=== PATIENT | female | born 1965 ===

== ENCOUNTER 2024-10-02 14:15 | Outpatient (AMB) | payer OTHER, SELFPAY ==
--- NOTE | 2024-10-02 14:34 | A.OFFPC_ITS ---
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 Transferring from Dr Frost from [facility]. Hypothyroid: On levothyroxine 100mcg daily. Due for TSH Mammo: History of reconstructive surgery, last one during COVID with Dr Loaiza Colonoscopy: Double endoscopy at ~ age 50 with [facility]. Referral placed today ROS CONSTITUTIONAL: Denies weight loss, fever and chills. HEENT: Denies changes in vision and hearing. RESPIRATORY: Denies SOB and cough. CV: Denies palpitations and CP GI: Denies abdominal pain, nausea, vomiting and diarrhea. : Denies dysuria and urinary frequency. MSK: Denies new myalgia and joint pain. SKIN: Denies rash and pruritus. NEUROLOGICAL: Denies headache PSYCHIATRIC: Denies recent changes in mood. PHYSICAL EXAM: GENERAL: Alert and oriented x 3. NAD EYES: EOMI. Anicteric. HENT: Moist mucous membranes. No scleral icterus. No cervical lymphadenopathy. LUNGS: Clear to auscultation bilaterally. CARDIOVASCULAR: Regular rate and rhythm. No murmur. No JVD. ABDOMEN: Soft, non-tender +bs EXTREMITIES: No edema. Non-tender. SKIN: No rashes or lesions. Warm. NEUROLOGIC: No focal neurological deficits. CN II-XII grossly intact PSYCHIATRIC: Cooperative. 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 1. Little interest or pleasure in doing things: not at all 2. Feeling down, depressed, or hopeless: not at all 3. Trouble falling or staying asleep, or sleeping too much: not at all 4. Feeling tired or having little energy: not at all 5. Poor appetite or overeating: not at all 6. Feeling bad about yourself - or that you are a failure or have let yourself or your family down: not at all 7. Trouble concentrating on things, such as reading the newspaper or watching television: not at all 8. Moving or speaking so slowly that other people could have noticed. Or the opposite - being so fidgety or restless that you have been moving around a lot more than usual: not at all 9. Thoughts that you would be better off or of hurting yourself in some way: not at all Total score: 0 Depression Screening Interpretation: Negative Depression Screening Done: Yes 53186 - PHQ-9 Billing: Yes Source: Developed by Drs. Kar Simmons, Kirstie Mckee, Yamil Womack and colleagues, with an educational don from [employer]. Thrive Questionnaire Date Thrive assessed: 10/02/24 I am a: Patient Within the past 12 months, did the food you bought not last and you didn't have the money to get more?: Never true Within the past 12 months, did you worry whether your food would run out before you got money to buy more?: Never true Do you have trouble paying for medicines?: No Do you have trouble getting transportation to medical appointments?: No Do you have trouble paying your heating and electricity bill?: No Do you have trouble taking care of your child, family member or friend?: No Do you have trouble with day-to-day activities such as bathing, preparing meals, shopping, managing finances, etc.?: No Are you currently unemployed and looking for a job?: No Are you interested in more education?: No Please select the resources that you would like help with: None Currently or been in a relationship where the following occur: No concerns reported THRIVE Score: 0 AUDIT C Alcohol Use Questionnaire (AUDIT-C) 1. How often do you have a drink containing alcohol?: Never 3. How often do you have six or more drinks on one occasion?: Never Total Score: 0 MOISE-7 AMB Questionnaire MOISE-7 Date MOISE - 7 assessed: 10/02/24 Feeling nervous, anxious, or on edge: 0 = Not at all Not being able to stop or control worryin = Not at all Worrying too much about different things: 0 = Not at all Trouble relaxin = Not at all Being so restless that it is hard to sit still: 0 = Not at all Becoming easily annoyed or irritable: 0 = Not at all Feeling afraid as if something awful might happen: 0 = Not at all Total MOISE-7 score (0-4 normal; 5-9 mild; 10-14 moderate; 15-21 severe): 0 Source: Developed by Drs. Kar Smimons, Kirstie Mckee, Yamil Womack and colleagues, with an educational dno from [employer]. MOISE-7 Assessment Billing MOISE-7 Assessment Tool: MOISE-7 Assessment 07451 Physical exam (Primary Care) Vital Signs: Last Vital Signs Temp 98 F 10/02/24 14:44 Pulse 75 10/02/24 14:44 Resp 12 10/02/24 14:44 BP 112/78 10/02/24 14:44 Pulse Ox 100 10/02/24 14:44 Oxygen Delivery Method Room Air 10/02/24 14:44 BMI result Body Mass Index 48.5 Tobacco/Smoking Status: Tobacco use Status Tobacco use date assessed 10/02/24 10/02/24 14:34 Patient Tobacco Use Status Never used Tobacco 10/02/24 14:53 e-Cigarette/Vaping Use Never Used 10/02/24 14:53 PHQ-9: PHQ-9 Score PHQ-9: Total score 0 10/02/24 14:54 Depression Screening Interpretation: Negative Thrive Assessment: Date of Thrive Assessment Date Thrive assessed 10/02/24 10/02/24 14:54 Currently or been in a relationship where the following occur: No concerns reported Coding Level of Care Code New Pt Level 4 (72909) Complex EM visit Add On G2211 Diagnoses Encounter to establish care Z76.89 Hormone imbalance E34.9 Hypothyroidism, unspecified type E03.9 Hypothyroidism type: unspecified Additional Codes MOISE-7 Assessment Billing - MOISE-7 Assessment Tool: MOISE-7 Assessment 35937 ([id number]) PHQ-9 - 00834 - PHQ-9 Billing: Yes ([id number]) Assessment & Plan Assessment & Plan (1) Encounter to establish care: Code(s): Z76.89 - Persons encountering health services in other specified circumstances Category: Medical (2) Hormone imbalance: Code(s): E34.9 - Endocrine disorder, unspecified Category: Medical (3) Hypothyroid: Code(s): E03.9 - Hypothyroidism, unspecified Category: Medical Qualifiers: Hypothyroidism type: unspecified Qualified Code(s): E03.9 - Hypothyroidism, unspecified Plan 59 year old female presenting to establish care Has requested records Past medical reviewed. medications reconciled Due, or soon due for colonoscopy Referral placed. Labs ordered Orders: Orders TSH reflex Free T4 Today E03.9 - Hypothyroidism, unspecified, Z13.220 - Encounter for screening for lipoid disorders, Z13.228 - Encounter for screening for other metabolic disorders Lipid Panel Today E03.9 - Hypothyroidism, unspecified, Z13.220 - Encounter for screening for lipoid disorders, Z13.228 - Encounter for screening for other metabolic disorders Complete Blood Count Auto Diff Today E03.9 - Hypothyroidism, unspecified, Z13.220 - Encounter for screening for lipoid disorders, Z13.228 - Encounter for screening for other metabolic disorders Comprehensive Met. Panel Today E03.9 - Hypothyroidism, unspecified, Z13.220 - Encounter for screening for lipoid disorders, Z13.228 - Encounter for screening for other metabolic disorders Cortisol Random Today E34.9 - Endocrine disorder, unspecified Lyme IgG/IgM w/reflex to WB Today E34.9 - Endocrine disorder, unspecified Referrals Gastroenterology Referral E03.9 - Hypothyroidism, unspecified, Z12.11 - Encounter for screening for malignant neoplasm of colon, Z13.220 - Encounter for screening for lipoid disorders, Z13.228 - Encounter for screening for other metabolic disorders, Z76.89 - Persons encountering health services in other specified circumstances Medications: New levothyroxine (Synthroid) 100 mcg PO DAILY 90 tabs 3RF
[2024-10-02 14:44] VITALS: BP 112/78; PULSE 75; RESP 12; TEMP 36.6; O2SAT 100; BMI 48.5
--- OUTSIDE RECORDS SUMMARY | 2024-10-02 17:30 | XMS_ITS | Encounter Summary ---
Author Organization [employer] Address [address] [place] [address] [address] [place] [address] Care Team Providers Care Dope Edger Name Role Phone Lexi Pereira Primary Care Provider [phone] Reason for Visit * Reason Comments Med Refill Encounter Details Date Type Department Care Team (Late st Contact Info) Description 06/07/2022 Refill [facility] MED[facility] [address] [place] [address] Kay Shrestha MD [address] [place] [address] Hypothyroidism (acquired) (Primary Dx) Social History Tobacco Use Types Packs/Day Years Used Date Smoking Tobacco: Never Assessed Comments Unknown Sex and Gender Information Value Date Recorded Sex Assigned at Female 06/16/2023 9:27 AM EST Legal Sex Female 8:32 PM EDT Gender Identity Female 06/16/2023 9:27 AM EST Sexual Orientation Choose not to disclose 2022 9:27 AM EST documented as of this encounter Plan of Treatment Not on file documented as of this encounter Visit Diagnoses Diagnosis Hypothyroidism (acquired)- Primary Unspecified hypothyroidism documented in this encounter Care Teams Dope Edger Relationship Specialty Start Date End Date Lexi Pereira DO [address] [place] [address] PCP - General Family Medicine 06/07/23 documented as of this encounter
--- OUTSIDE RECORDS SUMMARY | 2024-10-02 17:30 | XMS_ITS | Clinical Summary ---
Author Organization [employer] Address [address] [place] [address] [address] [place] [address] Care Team Providers Care Hearing Stenographer Name Role Phone Lexi Pereira DO Primary Care Provider Allergies Active Allergy Reactions Criticality Noted Date Comments Azithromycin Diarrhea 06/21/2023 Penicillins 06/21/2023 Other reaction(s): severe diarrhea Medications levothyroxine (Unithroid) 100 MCG tabletIndication s:Hypothyroidism (acquired) Take 1 tablet (100 mcg) by mouth in the morning. Take on an empty stomach. 90 tablet 3 08/17/2024 Active Active Problems Problem Noted Date Diagnosed Date Vitamin D deficiency 07/13/2023 Popliteal pain 07/06/2023 Assessment & Plan (07/06/2023 11:52 AM EST): Suspect Nolan's cyst. 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 Check thyroid studies. Medial epicondylitis of right elbow 06/21/2023 06/21/2023 Sarcoid 06/21/2023 06/21/2023 Assessment & Plan (06/21/2023 10:23 AM EST): Hilar adenopathy, diagnosed 2006 with no subsequent follow up. Dyspnea on exertion. CXR ordered Seasonal allergic rhinitis due to pollen 024 06/21/2023 Varicose veins of lower extr emities without ulcer or inflammation 06/21/2023 06/21/2023 Graves' disease in remission 06/21/2023 Overview (06/21/2023): S/p radioactive iodine ablation in 1997 Assessment & Plan (06/21/2023 10:20 AM EST): Symptoms may reflect inadequate thyroid hormone replacement. Check thyroid studies. Symptoms may also be d/t ongoing or new autoimmune disease. Screen MATTHIEU. H/O bilateral breast implants 06/21/2023 Overview (06/21/2023): Breast reconstruction s/p cancer. Most recent implants from 2020 History of breast cancer 06/20/20062006 Overview (06/21/2023): Left breast cancer s/p bilateral mastectomy in 2006. S/p reconstruction. Resolved Problems Problem Noted Date Diagnosed Date Resolved Date Breast cancer 06/20/2006200606/21/2023 Encounters Date Type Department Care Team Description 08/17/2024 Andrew Walker [facility] [address] [place] [id number] Lexi Pereira DO Hypothyroidism (acquired) (Primary Dx) from Last 3 Months Immunizations Name Administration Dates Next Due Pneumococcal Polysaccharide PPSV23 03/04/2015 Tdap 03/04/2015 Social History Tobacco Use Types Packs/Day Years Used Date Smoking Tobacco: Never Smokeless Tobacco: Never Tobacco Cessation:Counseling Given: Not Answered Alcohol Use Standard Drinks/Week Comments Never 0 (1 standard drink = 0.6 oz pur e alcohol) Comments Unknown Sex and Gender Information Value Date Recorded Sex Assigned at Female 06/16/2023 9:27 AM EST Legal Sex Female 8:32 PM EDT Gender Identity Female 06/16/2023 9:27 AM EST Sexual Orientation Choose not to disclose 2022 9:27 AM EST Last Filed Vital Signs Vital Sign Reading Time Taken Comments Blood Pressure 112/68 06/21/2023 8:43 AM EST Pulse 92 06/21/2023 8:43 AM EST Temperature - - Respiratory Rate 16 06/21/2023 8:43 AM EST Oxygen Saturation 100% 03/02/2022 8:30 AM EDT Inhaled Oxygen Concentration - - Weight 73 kg (161 lb) 06/21/2023 8:43 AM EST Height 168.9 cm (5' 6.5 ) 06/21/2023 8:43 AM EST Body Mass Index 25.6 06/21/2023 8:43 AM EST Plan of Treatment Health Maintenance Due Date Last Done Comments CT Colonography 1965 Colonoscopy 1965 Colorectal Cancer Screening 1965 Depression Screening 1965 FIT DNA/Cologuard 1965 FIT 1965 FOBT 1965 HIV Screening 1965 SDOH Screening 1965 Sigmoidoscopy 1965 Alcohol/Substance Use Screening 1977 Hepatitis C Screening 1983 Hepatitis B Vaccines (1 of 3 - 19+ 3-dose series) 1984 HPV/Cotest 1995 Zoster Vaccines (1 of 2) 2015 Pneumococcal Vaccine: 50+ Ye ars (2 of 2 - PCV) 03/04/2016 03/04/2015 Cervical Cancer Screening 01/30/2022 Pap Smear 01/30/2022 01/30/2019 COVID-19 Vaccine (1 - 2023-2 5 season) 2024 Influenza Vaccine (#1) 2024 Tobacco Screening 06/21/2024 06/21/2023 DTaP/Tdap/Td Vaccines (2 - T d or Tdap) 03/04/2025 03/04/2015 RSV Patients and Pa tients Aged 60 years or older (1 - 1-dose 75+ series) 2040 HIB Vaccines Aged Out No longer eligi ble based on patient's age to complete this topic HPV Vaccines Aged Out No longer eligi ble based on patient's age to complete this topic Hepatitis A Vaccines Aged Out No long er eligible based on patient's age to complete this topic IPV Vaccines Aged Out No longer eligi ble based on patient's age to complete this topic Meningococcal Vaccine Aged Out No michael nikki eligible based on patient's age to complete this topic RSV under 20 months Aged Out No longe r eligible based on patient's age to complete this topic Rotavirus Vaccines Aged Out No longer eligible based on patient's age to complete this topic Procedures Procedure Name Priority Date/Time Associated Diagnosis Comments HM PAP/HPV Routine 01/30/2019 from Last 3 Months or Most Recently Relevant to Health Maintenance Results * Hm Pap Smear (01/30/2019) us Historical Provider HEALTH MAINTENANCE Final Result from Last 3 Months or Most Recently Relevant to Health Maintenance Insurance [facility] , [address] [place] [address] Care Teams Hearing Stenographer Relationship Specialty Start Date End Date Lexi Pereira DO [address] [place] [id number] PCP - General Family Medicine 06/07/23
== END 2024-10-02 15:19 | disposition home or self-care (01) ==
LOC: HO.HMCFM 14:15
PROVIDERS: PCP Internal Medicine; Visit Provider Internal Medicine
DX: Z76.89 Persons encountering health services in other specified circumstances (principal); E34.9 Endocrine disorder, unspecified; E03.9 Hypothyroidism, unspecified

== ENCOUNTER → 2024-10-02 14:15 | Outpatient (BNVA) | payer OTHER, SELFPAY | PROVIDERS: PCP Internal Medicine; Visit Provider Internal Medicine | DX: E03.9 Hypothyroidism, unspecified (principal); E34.9 Endocrine disorder, unspecified; Z76.89 Persons encountering health services in other specified circumstances | CPT/HCPCS: 96127 ==

== ENCOUNTER 2024-10-16 11:05 | Outpatient (REF) | payer OTHER, SELFPAY ==
--- OUTSIDE RECORDS SUMMARY | 2024-10-16 12:58 | XMS_ITS | Clinical Summary ---
Author Organization [employer] Address [address] [place] [address] [address] [place] [address] Care Team Providers Care Mobile Sales Assistant Name Role Phone Lexi Pereira DO Primary Care Provider [phone] Allergies Active Allergy Reactions Criticality Noted Date [...] Department Care Team Description 08/17/2024 Andrew Walker [facility] [address] [place] [phone] Lexi Pereira DO Hypothyroidism (acquired) (Primary Dx) [...] Most Recently Relevant to Health Maintenance Insurance [facility] , [address] [place] [address] Care Teams Mobile Sales Assistant Relationship Specialty Start Date End Date Lexi Pereira DO [address] [place] [id number] PCP - General Family Medicine 06/07/23
--- OUTSIDE RECORDS SUMMARY | 2024-10-16 12:58 | XMS_ITS | Encounter Summary ---
Author Organization [employer] Address [address] [place] [address] [address] [place] [address] Care Team Providers Care Machine Operator Assistant Name Role Phone Lexi Pereira Primary Care Provider [phone] Reason for Visit * Reason Comments Med Refill Encounter Details Date Type Department Care Team (Late st Contact Info) Description 06/07/2022 Refill [facility] MED[facility] [address] [place] [address] Kay Shrestha MD [address] [place] [address] Hypothyroidism (acquired) (Primary Dx) Social History Tobacco [...] hypothyroidism documented in this encounter Care Teams Machine Operator Assistant Relationship Specialty Start Date End Date Lexi Pereira DO [address] [place] [address] PCP - General Family Medicine 06/07/23 documented as of this encounter
[2024-10-16 14:21] LABS: MANUAL DIFF FLAG NO
[2024-10-16 14:25] LABS: Basophils Percent Auto 1.2 % (0-2); Eosinophils Absolute Auto 0.3 X10*3/uL (0.0-0.4); Eosinophils Percent Auto 9.5 % (0-4); Hematocrit 37.3 % (37.0-47.0); Hemoglobin 11.6 g/dl (12.0-16.0); Lymphocytes Absolute Auto 1.1 X10*3/uL (1.2-4.9); Lymphocytes Percent Auto 33.7 % (20-40); Mean Corpuscular HGB Conc 31.1 g/dl (31.0-35.0); Mean Corpuscular Hemoglobin 25.4 pg (27.0-33.0); Mean Corpuscular Volume 81.8 fL (80.0-98.0); Mean Platelet Volume 9.2 fL (9.4-12.3); Monocytes Absolute Auto 0.4 X10*3/uL (0.1-1.2); Neutrophils Absolute Auto 1.4 x10*3/uL (2.0-8.3); Neutrophils Percent Auto 42.6 % (45-73); Platelet Count 265 X10*3/uL (160-400); Red Blood Count 4.56 X10*6/uL (4.20-5.50); Red Cell Distribution Width 17.8 % (11.0-16.0); White Blood Count 3.4 X10*3/uL (4.8-10.8)
[2024-10-16 14:52] LABS: Alanine Aminotransferase 19 U/L (0-31); Alkaline Phosphatase 101 U/L (39-117); Anion Gap 10 (12-20); Aspartate Amino Transferase 33 U/L (5-31); Bilirubin Total 0.7 mg/dL (0.0-1.0); Blood Urea Nitrogen 12 mg/dL (9-16); Calcium 9.4 mg/dL (8.4-10.2); Carbon Dioxide 27 mmol/L (22-29); Chloride 108 mmol/L (96-108); Cholesterol 130 mg/dL (<200); Estimated Glomerular Filt Rate > 60; Glucose Random 86 mg/dL (60-115); HDL Cholesterol 48 mg/dL (>40); LDL Cholesterol Calculated 72 mg/dL (<100); Potassium 4.5 mmol/L (3.3-5.1); Sodium 140 mmol/L (135-145); Total Protein 7.4 g/dL (6.5-8.0); Triglycerides 53 mg/dL (<150)
[2024-10-16 15:10] LABS: Cortisol Random 8.3 ug/dL
[2024-10-17 19:14] LABS: Lyme Abs Screen <0.90 index
== END 2024-10-16 11:06 | disposition home or self-care (01) ==
LOC: HO.WFDLDS 11:05
PROVIDERS: Visit Provider Internal Medicine
DX: E34.9 Endocrine disorder, unspecified (principal); E03.9 Hypothyroidism, unspecified; Z13.228 Encounter for screening for other metabolic disorders; Z13.220 Encounter for screening for lipoid disorders
CPT/HCPCS: 36415; 80053; 80061; 82533; 84443; 85025; 86617; 86618

== ENCOUNTER 2024-11-30 12:14 | Outpatient (AMB) | payer OTHER, SELFPAY ==
[2024-11-30 12:53] VITALS: BP 98/60; PULSE 92; TEMP 37.1; O2SAT 97; BMI 24.7
--- NOTE | 2024-11-30 12:53 | AM.OFFWIN_ITS ---
Intake Vital Signs 11/30/24 12:53 Height 5 ft 6.5 in Weight 155 lb 2 oz BMI 24.7 BP 98/60 Blood Pressure Location Lt brachial Position Sitting Pulse 92 Pulse Source Pulse Oximeter Temp 98.8 F Temp Source Oral Pulse Oximetry (%) 97 Oxygen Delivery Method Room Air Intake Visit Reasons: EP-cough, body ache, sore throat Intake Note: Pt presents to the office today for c/o cough,body aches, chest congestion, and sore throat x5 days. Patient Tobacco Use Status: Never used Tobacco Allergies amoxicillin Allergy (Severe, Verified 11/30/24 12:56) Rash HPI HPI Comments History of Present Illness Details History - The patient is a 59-year-old female pr esenting with a cough producing greenish-lackey sputum and shortness of breath. - The cough began approximately five day s ago and was initially thought to be due to allergies. - The patient denies any history of COPD or asthma but has had bronchitis and pneumonia in the past. - She does not smoke or vape. - The patient reports experiencing chill s but no fever. - She has not experienced sinus pain, ea r pain, or headaches recently, although she did initially suspect sinus involvement. - The patient has not used an inhaler be fore and has tried ragj-gti-drrwqzh medications without significant relief. Physical Exam General: Cooperative, healthy appearing, comfortable and no acute distress Orientation/consciousness: Patient oriented x3 Limitations: No limitations Head: Normal to inspection Ears: Hearing grossly normal bilaterally, external ears normal, fluid present bilat TMs, no infection noted Nose: Normal external nose present, Normal nares present and No nasal discharge present Face and sinus: Normal facial exam and Yes sinuses nontender Mouth: Normal oral and palatal mucosa present and moist mucous membranes Throat: Yes tonsils normal, Yes uvula midline. Posterior oropharynx erythema, no exudates Eyes: Appearance normal, both eyes and all related structures Neck: Normal visual inspection, full ROM Respiratory: Clear to auscultation bilaterally. Normal respiratory effort, able to speak in complete sentences, not actively coughing, no respiratory distress, not tachypneic, no tripod positioning and no use of accessory muscles Cardiovascular: Regular rate and rhythm. 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 [employer] Current occupational exposures/hazards: Yes (cleaning chemicals) Cognitive needs: No Hearing needs: No Vision needs: Yes (glasses) Review of Systems Const All systems reviewed & are unremarkable except as noted in HPI and below Physical Exam Vital Signs: Last Vital Signs Temp 98.8 F 11/30/24 12:53 Pulse 92 11/30/24 12:53 BP 98/60 11/30/24 12:53 Pulse Ox 97 11/30/24 12:53 Oxygen Delivery Method Room Air 11/30/24 12:53 BMI result Body Mass Index 24.7 Results AMB Rapid Strep AMB Rapid Strep Negative Last Edit by Ivelisse Chacon CMA on 11/30/24 13:06 Assessment & Plan Assessment & Plan (1) URI, acute: Code(s): J06.9 - Acute upper respiratory infection, unspecified Plan: VSS, pt well appearing and PE unremarkable. - Perform viral testing for influenza, COVID-19, and RSV to determine the cause of the infection. - Prescribe Fluticasone nasal spray to reduce fluid in the ears and alleviate congestion. - Prescribe an inhaler to manage shortness of breath and potential bronchospasm. - Recommend uprx-nto-tkqeuug decongestants and antihistamines to manage symptoms. - Advise the patient to rest and avoid work until symptoms improve to prevent spreading the infection. - Provide a note for work absence and advise follow-up if symptoms persist beyond a week. Patient was informed and verbally consented to the use of an ambient scribe for clinic note documentation during this visit Orders: Orders AMB Rapid Strep Screen Today Z13.9 - Encounter for screening, unspecified SARS-CoV2/FLU/RSV Today R09.89 - Other specified symptoms and signs involving the circulatory and respiratory systems Medications: New albuterol sulfate 90 mcg/actuation 2 puffs inhalation Q6H PRN 8.5 grams 0RF shortness of breath or wheezing or cough Coding Level of Care Code Est Pt Level 3 (64140) Diagnoses URI, acute J06.9
--- OUTSIDE RECORDS SUMMARY | 2024-11-30 12:56 | XMS_ITS | Clinical Summary ---
Author Organization [facility] 299 [facility] Address [address] [place] [address] Phone Care Team Providers Care Seo Consultant Name Role Phone Tia Philippe MD Primary Care Provider Allergies Active Allergy Reactions Criticality Noted Date Comments Amoxicillin 10/10/2024 Medications levothyroxine (SYNTHROID, LEVOTHROID) 100 mcg tablet Take by mouth 1 (one) time each day before breakfast. Active sodium,potassiu m,mag sulfates (Suprep Bowel Prep Kit) 17.5-3.13-1.6 gram recon soln bowel prep kit oral solution Take 177ML by mouth for 2 doses. SEE INSTRUCTIONS PROVIDED BY OFFICE. 1 kit Active Social History Tobacco Use Types Packs/Day Years Used Date Smoking Tobacco: Never Assessed Comments Unknown Sex and Gender Information Value Date Recorded Sex Assigned at Not on file Legal Sex Female 4:09 PM EDT Gender Identity Not on file Sexual Orientation Not on file Plan of Treatment Upcoming Encounters Date Type Department Care Team (Late st Contact Info) Description 12/10/2024 8:30 AM EDT Appointment [facility] Endoscopy [address] [place] [phone] Cl Forbes MD [address] [address] Health Maintenance Due Date Last Done Comments Breast Cancer Screening 1965 DTaP,Tdap,and Td Vaccines (1 - Tdap) 1984 Hepatitis B Vaccines (1 of 3 - 19+ 3-dose series) 1984 Cervical Cancer Screening: P ap Smear 1986 Pneumococcal Vaccine: 50+ Ye ars (1 of 1 - PCV) 2015 Zoster Vaccines (1 of 2) 2015 COVID-19 Vaccine (1 - 2023-2 5 season) 2024 Colorectal Cancer Screening: Colonoscopy 10/10/2024 Depression Screening 10/10/2024 HIV Screening 10/10/2024 Hepatitis C Screening 10/10/2024 Social Influencers of Health Screening 10/10/2024 Influenza Vaccine (Season Ended) 2025 RSV Immunization Adult Patie nts (1 - 1-dose 75+ series) 2040 HIB [...] on patient's age to complete this topic MMR Vaccines Aged Out No longer eligi ble based on patient's age to complete this topic Meningococcal ACWY Vaccine Aged Out N o longer eligible based on patient's age to complete this topic Meningococcal B Vaccine Aged Out No l onger eligible based on patient's age to complete this topic Pneumococcal Vaccine: Pediat rics (0 to 5 Years) and At-Risk Patients (6 to 64 Years) Aged Out No longer eligible b ased on patient's age to complete this topic RSV Immunization Patients Un jose 20 months Aged Out No longer eligible b ased on patient's age to complete this topic Varicella Vaccines Aged Out No longer eligible based on patient's age to complete this topic Insurance [facility] [address] [place] [address] Care Teams Seo Consultant Relationship Specialty Start Date End Date Tia Philippe MD [address] [place] [address] [address] [place], [place] [phone] PCP - General Internal Medicine 10/09/24
== END 2024-11-30 13:17 | disposition home or self-care (01) ==
PROVIDERS: PCP Internal Medicine; Visit Provider Physician Assistant
DX: Z13.9 Encounter for screening, unspecified (principal); J06.9 Acute upper respiratory infection, unspecified

== ENCOUNTER 2024-11-30 12:14 | Outpatient (REF) | payer OTHER, SELFPAY ==
[2024-11-30 17:57] LABS: Influenza A PCR NEGATIVE (Negative); Influenza B PCR NEGATIVE (Negative); Resp Syncy Virus RNA Qual PCR NEGATIVE (Negative); SARS COV2 PCR INHOUSE NEGATIVE (Negative)
== END 2024-11-30 12:15 | disposition home or self-care (01) ==
LOC: HO.LNP 12:14
PROVIDERS: PCP Internal Medicine; Visit Provider Physician Assistant
DX: J06.9 Acute upper respiratory infection, unspecified (principal); R09.89 Other specified symptoms and signs involving the circulatory and respiratory systems
CPT/HCPCS: 0241U; 87880

== ENCOUNTER 2024-12-31 10:55 | Outpatient (AMB) | payer SELFPAY ==
--- NOTE | 2024-12-31 11:05 | MHC.PC.OV ---
Vital Signs 12/31/24 11:06 Height 5 ft 6.14 in Weight 156 lb BMI 25.1 BP 102/66 Blood Pressure Location Rt brachial Position Sitting Respiration 12 Pulse 82 Pulse Source Pulse Oximeter Temp 98.4 F Temp Source Oral Pulse Oximetry (%) 98 Oxygen Delivery Method Room Air Intake Visit Reasons: FMLA paper from [employer] Intake Note: FMLA paperwork Special Education Curriculum Specialist Required: No Allergies amoxicillin Allergy (Severe, Verified 12/31/24 11:06) Rash Tobacco use date assessed: 10/02/24 Dental Screening Dental Screen Date: 10/02/24 HPI HPI Comments History of Present Illness Details 59 year old female with a past medical history of hypothyroid presenting for follow up Recent URI. Given an inhaler. Missed a few days of work. Needs FMLA papers for missed work. She continue to have some residual cough. It is more prevalent at night. No fevers, sweats. Hypothyroid: On levothyroxine 100mcg daily. Mammo: History of reconstructive surgery, last one during COVID with Dr Loaiza Colonoscopy: Double endoscopy at ~ age 50 with [facility]. Referral placed today ROS CONSTITUTIONAL: Denies weight loss, fever and chills. HEENT: Denies changes in vision and hearing. RESPIRATORY: Denies SOB and cough. CV: Denies palpitations and CP GI: Denies abdominal pain, nausea, vomiting and diarrhea. : Denies dysuria and urinary frequency. MSK: Denies new myalgia and joint pain. SKIN: Denies rash and pruritus. NEUROLOGICAL: Denies headache PSYCHIATRIC: Denies recent changes in mood. PHYSICAL EXAM: GENERAL: Alert and oriented x 3. NAD EYES: EOMI. Anicteric. HENT: Moist mucous membranes. No scleral icterus. No cervical lymphadenopathy. LUNGS: Clear to auscultation bilaterally. CARDIOVASCULAR: Regular rate and rhythm. No murmur. No JVD. ABDOMEN: Soft, non-tender +bs EXTREMITIES: No edema. Non-tender. SKIN: No rashes or lesions. Warm. NEUROLOGIC: No focal neurological deficits. CN II-XII grossly intact PSYCHIATRIC: Cooperative. 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 Kar Simmons, Kirstie Mckee, Yamil Womack and colleagues, with an educational don from [employer]. Physical exam (Primary Care) Vital Signs: Last Vital Signs Temp 98.4 F 12/31/24 11:06 Pulse 82 12/31/24 11:06 Resp 12 12/31/24 11:06 BP 102/66 12/31/24 11:06 Pulse Ox 98 12/31/24 11:06 Oxygen Delivery Method Room Air 12/31/24 11:06 BMI result Body Mass Index 25.1 Tobacco/Smoking Status: Tobacco use Status Tobacco use date assessed 10/02/24 12/31/24 11:06 Patient Tobacco Use Status Never used Tobacco 12/31/24 11:06 e-Cigarette/Vaping Use Never Used 12/31/24 11:06 Thrive Assessment: Date of Thrive Assessment Date Thrive assessed 10/02/24 12/31/24 11:06 Coding Level of Care Code Est Pt Level 4 (08676) Diagnoses Hypothyroidism, unspecified type E03.9 Hypothyroidism type: unspecified Subacute cough R05.2 Cough type: subacute Assessment & Plan Assessment & Plan (1) Hypothyroid: Code(s): E03.9 - Hypothyroidism, unspecified Category: Medical Qualifiers: Hypothyroidism type: unspecified Qualified Code(s): E03.9 - Hypothyroidism, unspecified (2) Cough: Code(s): R05.9 - Cough, unspecified Qualifiers: Cough type: subacute Qualified Code(s): R05.2 - Subacute cough Plan 59 year old female for follow up cough Lung exam is benign. [facility] Orders: Orders XR chest 2V Today R05.9 - Cough, unspecified UA CC w/rflx Micro + Cult Today I63.9 - Cerebral infarction, unspecified Medications: New azithromycin For 250 mg dose pack: take 500 mg today (day 1), then 250 mg for 4 days (days 2-5) PO 6 tabs 0RF
[2024-12-31 11:06] VITALS: BP 102/66; PULSE 82; RESP 12; TEMP 36.9; O2SAT 98; BMI 25.1
--- OUTSIDE RECORDS SUMMARY | 2024-12-31 11:54 | XMS_ITS | Clinical Summary ---
Author Organization [facility] 299 [facility] Address [address] [place] [address] Phone Care Team Providers Care Oliver Filter Operator Name Role Phone Tia Philippe MD Primary Care Provider [phone] Allergies Active Allergy Reactions Criticality Noted Date Comments Amoxicillin 10/10/2024 Medications levothyroxine (SYNTHROID, LEVOTHROID) 100 mcg tablet Take by mouth 1 (one) time each day before breakfast. Active sodium,potassiu m,mag sulfates (Suprep Bowel Prep Kit) 17.5-3.13-1.6 gram recon soln bowel prep kit oral solution Take 177ML by mouth for 2 doses. SEE INSTRUCTIONS PROVIDED BY OFFICE. 1 kit Active Encounters Date Type Department Care Team Description 12/03/2024 Telephone Gastroenterology - [address] [place] [phone] Cl Forbes MD from Last 3 Months Social History Tobacco Use Types Packs/Day Years Used Date Smoking Tobacco: Never Assessed Comments Unknown Sex and Gender Information Value Date Recorded Sex Assigned at Not on file Legal Sex Female 4:09 PM EDT Gender Identity Not on file Sexual Orientation Not on file Plan of Treatment Health Maintenance Due Date Last Done Comments Breast Cancer Screening 1965 DTaP,Tdap,and Td Vaccines (1 - Tdap) 1984 Hepatitis B Vaccines (1 of 3 - 19+ 3-dose series) 1984 Cervical Cancer Screening: P ap Smear 1986 Pneumococcal Vaccine: 50+ Ye ars (1 of 1 - PCV) 2015 Zoster Vaccines (1 of 2) 2015 COVID-19 Vaccine (2023-2 5 season) 2024 Colorectal Cancer Screening: Colonoscopy 10/10/2024 Depression Screening 10/10/2024 HIV Screening 10/10/2024 Hepatitis C Screening 10/10/2024 Social Influencers of Health Screening 10/10/2024 Influenza Vaccine (#1) 2025 RSV Immunization Adult Patie nts (1 [...] patient's age to complete this topic Insurance [facility] Care Teams Oliver Filter Operator Relationship Specialty Start Date End Date Tia Philippe MD [address] [place] [address] [address] [place], [place] [id number] PCP - General Internal Medicine 10/09/24
--- OUTSIDE RECORDS SUMMARY | 2024-12-31 11:54 | XMS_ITS | Encounter Summary ---
Author Organization [employer] Address [address] [facility] [address] [place] [address] Care Team Providers Care Collaborative Teacher Name Role Phone Randall Lexi MORGAN Primary Care Provider [phone] Reason for Visit * Reason Comments Med Refill Encounter Details Date Type Department Care Team (Late st Contact Info) Description 06/07/2022 Refill [facility] MEDICAL [address] [place] [address] Kay Shrestha MD [address] [place] [address] Hypothyroidism (acquired) (Primary Dx) Social History Tobacco [...] hypothyroidism documented in this encounter Care Teams Collaborative Teacher Relationship Specialty Start Date End Date Lexi Pereira DO [address] [place] [address] PCP - General Family Medicine 06/07/23 documented as of this encounter
== END 2024-12-31 11:37 | disposition home or self-care (01) ==
LOC: HO.HMCFM 10:55
PROVIDERS: PCP Internal Medicine; Visit Provider Internal Medicine
DX: E03.9 Hypothyroidism, unspecified (principal); R05.2 Subacute cough

== ENCOUNTER → 2024-12-31 10:55 | Outpatient (BNVA) | payer SELFPAY | PROVIDERS: PCP Internal Medicine; Visit Provider Internal Medicine | DX: R05.2 Subacute cough (principal); E03.9 Hypothyroidism, unspecified; I63.9 Cerebral infarction, unspecified | CPT/HCPCS: 99212 ==

== ENCOUNTER 2024-12-31 12:07 | Outpatient (REF) | payer OTHER, SELFPAY ==
[2024-12-31 15:13] LABS: Appearance Urine Clear; Glucose Urine UA Negative (Negative); PH 7.0 (5.0-9.0); Specific Gravity - Urine 1.010 (1.005-1.025)
== END 2024-12-31 12:08 | disposition home or self-care (01) ==
LOC: HO.WFDLDS 12:07
PROVIDERS: Visit Provider Internal Medicine
DX: I63.9 Cerebral infarction, unspecified (principal)
CPT/HCPCS: 81003